=== PATIENT | male | born 1960 | race Caucasian/White ===

== ENCOUNTER 2017-05-23 07:40 | Day surgery (SDC) | payer OTHER ==
[2017-05-23] MEDS ORDERED: SIMETHICONE 40 MG/0.6 ML ML ONE (07:47)
[2017-05-23] MEDS ORDERED: MEPERIDINE HCL/PF 100 MG/ML AMP ONE (07:48)
[2017-05-23] MEDS: MIDAZOLAM HCL 5 MG/5 ML VIAL ONE ×3 (08:14→08:22)
[2017-05-23 13:16] VITALS: BP_SYST 117
== END 2017-05-23 09:40 | disposition home or self-care (01) ==
LOC: SDS 07:40 → SMU 07:40 → SDS 09:40
PROVIDERS: ATTEND Internal Medicine Gastroenterology
DX: Z12.11 Encounter for screening for malignant neoplasm of colon (principal); D12.3 Benign neoplasm of transverse colon; K64.8 Other hemorrhoids
CPT/HCPCS: 45380; 88305; J2175; J2250